=== PATIENT | female | born 1990 | race Caucasian/White ===

== ENCOUNTER 2021-05-26 14:37 | Emergency (ER) | payer SELFPAY ==
[2021-05-26 17:21] LABS: ACETAMINOPHEN 0 ug/mL (10-30)
--- NOTE | 2021-05-26 17:28 | EDM.PDOCBH ---
ED HPI GENERAL MEDICAL PROBLEM - General Chief Complaint: Drug or Alcohol Abuse Stated Complaint: MEDICAL CLEARENCE Time Seen by Provider: 05/26/21 16:09 Source of Information: Reports: Patient, RN Notes Reviewed History Limitations: Reports: No Limitations - History of Present Illness INITIAL COMMENTS - FREE TEXT/NARRATIVE: Patient is a 30-year-old female presenting to the emergency department for medical clearance to go to the [facility] residential crisis center. She reports a long history of heroin abuse. She uses by injecting. Last use was proximate 48 hours ago. Also reports history of IV methamphetamine use. Last use was 3 days ago. She was evaluated at [facility] today and sent here for medical clearance to go to the [facility] [place] [facility] detox. At this time, she states that she feels anxious, slightly nauseous, and has the "creepy crawly's ". She has not been vomiting. - Related Data Allergies Allergy/AdvReac Type Severity Reaction Status Date / Time shellfish derived Allergy Anaphylactic Verified 05/26/21 15:14 Shock Home Meds: Home Meds . 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: Musculoskeletal History: Reports: Other (See Below) Other Musculoskeletal History: shattered pelvis Psychiatric History: Reports: Addiction - Infectious Disease History Infectious Disease History: Reports: Chicken Pox, Hepatitis C, Novel Coronavirus - Past Surgical History Musculoskeletal Surgical History: Reports: Other (See Below) Other Musculoskeletal Surgeries/Procedures:: pelvic surgery Social & Family History - Tobacco Use Tobacco Use Status *Q: Current Every Day Tobacco User Years of Tobacco use: 10 Packs/Tins Daily: 1 - Recreational Drug Use Recreational Drug Use: Yes Drug Use in Last 12 Months: Yes Recreational Drug Type: Reports: Heroin, Methamphetamine Recreational Drug Use Frequency: Binges Recreational Drug Last Use: t-2 ED ROS GENERAL - Review of Systems Review Of Systems: Comprehensive ROS is negative, except as noted in HPI. ED EXAM, BEHAVIORAL HEALTH - Physical Exam Exam: See Below Exam Limited By: No Limitations General Appearance: Alert, WD/WN, No Apparent Distress Eye Exam: Bilateral Eye: PERRL Respiratory/Chest: No Respiratory Distress, Lungs Clear, Normal Breath Sounds, No Accessory Muscle Use, Chest Non-Tender Cardiovascular: Normal Peripheral Pulses, Regular Rate, Rhythm, No Edema, No Gallop, No JVD, No Murmur, No Rub GI/Abdominal: Normal Bowel Sounds, Soft, Non-Tender, No Organomegaly, No Distention, No Abnormal Bruit, No Mass Neurological: Alert, Normal Mood/Affect, Normal Cognition, Normal Gait, No Motor/Sensory Deficits, Oriented x 3 Psychiatric: Alert, Normal Affect, Normal Cognition, Normal Mood, Oriented Skin Exam: Warm, Dry, Intact, Normal color, No rash, Other (Scattered, healed scars to bilateral upper extremities.) #1 Interpretation EKG Date: 05/26/21 Time: 16:35 Rhythm: NSR Rate (Beats/Min): 81 Ambler: Normal P-Wave: Present QRS: Normal ST-T: Normal QT: Normal COURSE, BEHAVIORAL HEALTH COMP - Course Vital Signs: Last Vital Signs Temp 99.3 F 05/26/21 15:11 Pulse 86 05/26/21 15:11 Resp 18 05/26/21 15:11 BP 116/84 05/26/21 15:11 Pulse Ox 99 05/26/21 15:11 Orders, Labs, Meds: Laboratory Tests 05/26/21 05/26/21 05/26/21 Range/Units 15:30 16:11 16:11 WBC (3.98-10.04) K/mm3 RBC (3.98-5.22) M/mm3 Hgb (11.2-15.7) gm/dl Hct (34.1-44.9) % MCV (79.4-94.8) fl MCH (25.6-32.2) pg MCHC (32.2-35.5) g/dl RDW Std Deviation (36.4-46.3) fL Plt Count (182-369) K/mm3 MPV (9.4-12.3) fl Neutrophils % (Manual) (40-60) % Band Neutrophils % (0-10) % Lymphocytes % (Manual) (20-40) % Atypical Lymphs % % Monocytes % (Manual) (2-10) % Eosinophils % (Manual) (0.7-5.8) % Basophils % (Manual) (0.1-1.2) Platelet Estimate Plt Morphology Comment RBC Morph Comment Sodium (136-145) mEq/L Potassium (3.5-5.1) mEq/L Chloride (98-107) mEq/L Carbon Dioxide (21-32) mEq/L Anion Gap (5-15) BUN (7-18) mg/dL Creatinine (0.55-1.02) mg/dL Est Cr Clr Drug Dosing mL/min Estimated GFR (MDRD) (>60) mL/min BUN/Creatinine Ratio (14-18) Glucose (70-99) mg/dL Calcium (8.5-10.1) mg/dL Total Bilirubin (0.2-1.0) mg/dL AST (15-37) U/L ALT (14-59) U/L Alkaline Phosphatase (46-116) U/L Total Protein (6.4-8.2) g/dl Albumin (3.4-5.0) g/dl Globulin gm/dL Albumin/Globulin Ratio (1-2) TSH 3rd Generation (0.358-3.74) uIU/mL Urine HCG, Qual Negative (NEGATIVE) Salicylates (2.8-20) mg/dL Urine Opiates Screen Negative (ASZQLA=859) Ur Buprenorphine Scrn Presumptive positive (CUTOFF=10) Ur Oxycodone Screen Negative (VAV1RC=324) Urine Methadone Screen Negative (TERABT=074) Ur Propoxyphene Screen Negative (DIGEGD=760) Acetaminophen (10-30) ug/mL Ur Barbiturates Screen Negative (ZEDWAO=737) Ur Tricyclics Screen Negative (OLDESF=995) Ur Phencyclidine Scrn Negative (CUTOFF=25) Ur Amphetamine Screen Presumptive positive H (UHHHUY=594) U Methamphetamines Scrn Presumptive positive H (CDPBEW=769) U Benzodiazepines Scrn Negative (FSEOUL=623) U Cocaine Metab Screen Negative (ILVZOR=897) U Marijuana (THC) Screen Negative (CUTOFF=50) Ethyl Alcohol (0.00) gm% SARS-CoV-2 RNA (TYRELL) Negative (NEGATIVE) 05/26/21 05/26/21 05/26/21 Range/Units 16:48 16:48 16:48 WBC 8.17 (3.98-10.04) K/mm3 RBC 4.51 (3.98-5.22) M/mm3 Hgb 11.8 (11.2-15.7) gm/dl Hct 37.0 (34.1-44.9) % MCV 82.0 (79.4-94.8) fl MCH 26.2 (25.6-32.2) pg MCHC 31.9 L (32.2-35.5) g/dl RDW Std Deviation 46.9 H (36.4-46.3) fL Plt Count 575 H (182-369) K/mm3 MPV 9.1 L (9.4-12.3) fl Neutrophils % (Manual) 60 (40-60) % Band Neutrophils % 0 (0-10) % Lymphocytes % (Manual) 37 (20-40) % Atypical Lymphs % 0 % Monocytes % (Manual) 3 (2-10) % Eosinophils % (Manual) 0 L (0.7-5.8) % Basophils % (Manual) 0 L (0.1-1.2) Platelet Estimate Increased Plt Morphology Comment See note RBC Morph Comment Normal Sodium 140 (136-145) mEq/L Potassium 3.7 (3.5-5.1) mEq/L Chloride 104 (98-107) mEq/L Carbon Dioxide 28 (21-32) mEq/L Anion Gap 11.7 (5-15) BUN 8 (7-18) mg/dL Creatinine 0.6 (0.55-1.02) mg/dL Est Cr Clr Drug Dosing 116.74 mL/min Estimated GFR (MDRD) > 60 (>60) mL/min BUN/Creatinine Ratio 13.3 L (14-18) Glucose 88 (70-99) mg/dL Calcium 8.7 (8.5-10.1) mg/dL Total Bilirubin 0.3 (0.2-1.0) mg/dL AST 19 (15-37) U/L ALT 31 (14-59) U/L Alkaline Phosphatase 82 (46-116) U/L Total Protein 8.0 (6.4-8.2) g/dl Albumin 3.1 L (3.4-5.0) g/dl Globulin 4.9 gm/dL Albumin/Globulin Ratio 0.6 L (1-2) TSH 3rd Generation 0.387 (0.358-3.74) uIU/mL Urine HCG, Qual (NEGATIVE) Salicylates 1.9 L (2.8-20) mg/dL Urine Opiates Screen (BGSHNW=645) Ur Buprenorphine Scrn (CUTOFF=10) Ur Oxycodone Screen (RJJ5BU=800) Urine Methadone Screen (DYHBWO=354) Ur Propoxyphene Screen (VHVMPX=474) Acetaminophen 0 L (10-30) ug/mL Ur Barbiturates Screen (KXGVVY=602) Ur Tricyclics Screen (FAKLEE=097) Ur Phencyclidine Scrn (CUTOFF=25) Ur Amphetamine Screen (AHUODK=046) U Methamphetamines Scrn (XXUREH=356) U Benzodiazepines Scrn (QXINJH=546) U Cocaine Metab Screen (WQQWIF=749) U Marijuana (THC) Screen (CUTOFF=50) Ethyl Alcohol 0.00 (0.00) gm% SARS-CoV-2 RNA (TYRELL) (NEGATIVE) Medications Discontinued Medications Generic Name Dose Route Start Last Admin Trade Name Nolvia PRN Reason Stop Dose Admin Lorazepam 1 mg 05/26/21 19:50 05/26/21 19:57 Lorazepam 1 Mg Tab PO 05/26/21 19:51 1 mg ONETIME ONE Administration Medical Clearance: 05/26/21 19:40 Hematology is unremarkable. Urine negative. Drug screen shows presumptive positive for buprenorphine, amphetamine, and methamphetamine. Patient reports that she did take a Suboxone today that someone gave her. She is not prescribed for this. She states that she thought [facility] had a Suboxone program, however they do not. I will write for tapering Ativan and scheduled Zofran for the next few days. Discussed return precautions. Disc harge instructions as documented. Departure - Departure Time of Disposition: 19:40 Disposition: Home, Self-Care 01 Condition: Good Clinical Impression: Drug dependence - Discharge Information *PRESCRIPTION DRUG MONITORING PROGRAM REVIEWED*: Yes *COPY OF PRESCRIPTION DRUG MONITORING REPORT IN PATIENT CLAU: No Instructions: Chemical Dependency Referrals: PCP,None [Primary Care Provider] - Forms: ED Department Discharge Additional Instructions: Take Ativan 1 mg by mouth 1 tablet every 8 hours for 2 days followed by 1 tablet every 12 hours for 2 days followed by 1 tablet daily for 2 days. Take take Zofran 4 mg by mouth every 8 hours for 3 days. Follow the treatment recommendation of [facility]. Return to ER as needed. Sepsis Event Note (ED) - Evaluation Sepsis Screening Result: No Definite Risk
[2021-05-26] MEDS ORDERED: LORazepam 1 MG Tab PO ONE (19:50)
== END 2021-05-26 20:08 | disposition home or self-care (01) ==
LOC: JD.ED 14:37
DX: F19.20 Other psychoactive substance dependence, uncomplicated (principal); Z91.013 Allergy to seafood; Z72.0 Tobacco use; Z20.822 Contact with and (suspected) exposure to COVID-19
CPT/HCPCS: 36415; 80053; 80143; 80179; 80306; 80307; 81025; 84443; 85007; 85027; 87635; 93005; 99283; A9270; U0002

== ENCOUNTER 2022-11-10 17:59 | Emergency (ER) | payer SELFPAY ==
[2022-11-10] MEDS ORDERED: Ondansetron 4 MG/2 ML SDV IVPUSH ONE (18:41)
[2022-11-10] MEDS ORDERED: Sodium Chloride 0.9% 10 ML Syringe FLUSH PRN (18:41)
[2022-11-10] MEDS ORDERED: Sodium Chloride 0.9% 1,000 ML IV ONE (18:41)
[2022-11-10] MEDS ORDERED: Sodium Chloride 0.9% 10 ML Syringe FLUSH ONE (18:55)
[2022-11-10] MEDS ORDERED: Iopamidol 612 MG/ML 100 ML Bottle IVPUSH ONE (18:55)
[2022-11-10] MEDS ORDERED: diphenhydrAMINE 50 MG/ML SDV IVPUSH ONE (19:29)
[2022-11-10] MEDS ORDERED: methylPREDNISolone Sodium Succinate 125 MG/2 ML SDV IVPUSH ONE (19:29)
[2022-11-10] MEDS ORDERED: methylPREDNISolone Sodium Succinate 125 MG/2 ML SDV ONE (19:39)
[2022-11-10 19:55] LABS: APPEARANCE,URINE CLEAR (Clear); BILIRUBIN,URINE NEGATIVE (Negative); COLOR,URINE YELLOW (Yellow); GLUCOSE,URINE NEGATIVE (Negative); KETONES,URINE NEGATIVE (Negative); LEUKOCYTE ESTERASE,URINE 1+ (Negative); NITRITE,URINE NEGATIVE (Negative); OCCULT BLOOD,URINE NEGATIVE (Negative); PROTEIN,URINE NEGATIVE (Negative); UROBILINOGEN,URINE 0.2 (0.2-1.0)
[2022-11-10] MEDS ORDERED: cefTRIAXone 1 GM in Sodium Chloride 0.9% 100 ML IV ONE (20:11)
[2022-11-10 20:16] LABS: BASOPHILS ABSOLUTE AUTO 0.05 K/mm3 (0.01-0.08); BASOPHILS PERCENT AUTO 0.4 % (0.1-1.2); EOSINOPHILS ABSOLUTE AUTO 0.09 K/mm3 (0.04-0.36); EOSINOPHILS PERCENT AUTO 0.8 (0.7-5.8); HEMATOCRIT 38.9 % (34.1-44.9); HEMOGLOBIN 12.6 gm/dl (11.2-15.7); IMMATURE GRAN ABSOLUTE AUTO 0.01 K/mm3 (0.00-0.10); IMMATURE GRAN PERCENT AUTO 0.1 % (<=1.0); LYMPHOCYTES ABSOLUTE AUTO 3.37 K/mm3 (1.18-3.74); LYMPHOCYTES PERCENT AUTO 28.2 % (19.3-51.7); MEAN CORPUSCULAR HEMOGLOBIN 27.3 pg (25.6-32.2); MEAN CORPUSCULAR HGB CONC 32.4 g/dl (32.2-35.5); MEAN CORPUSCULAR VOLUME 84.2 fl (79.4-94.8); MEAN PLATELET VOLUME 9.5 fl (9.4-12.3); MONOCYTES ABSOLUTE AUTO 1.09 K/mm3 (0.24-0.36); MONOCYTES PERCENT AUTO 9.1 % (4.7-12.5); NEUTROPHILS ABSOLUTE AUTO 7.36 K/mm3 (1.56-6.13); NEUTROPHILS PERCENT AUTO 61.4 % (34.0-71.1); RED BLOOD CELL COUNT 4.62 M/mm3 (3.98-5.22); WHITE BLOOD CELL COUNT,WBC 11.97 K/mm3 (3.98-10.04)
[2022-11-10 20:21] LABS: RBC,URINE 0-5 /hpf (0-5); SQUAMOUS EPITHELIAL CELLS,UR 0-5 /hpf (0-5); WBC,URINE 0-5 /hpf (0-5)
[2022-11-10 20:22] LABS: BACTERIA,URINE FEW /hpf (FEW); MUCUS,URINE NOT SEEN /hpf (FEW)
[2022-11-10 20:24] LABS: PLATELET COUNT,PLT 459 K/mm3 (182-369)
[2022-11-10 20:33] LABS: A/G RATIO 0.9 (1-2); ALANINE AMINOTRANSFERASE,ALT 36 U/L (14-59); ALBUMIN 3.2 g/dl (3.4-5.0); ALKALINE PHOSPHATASE 60 U/L (46-116); ANION GAP 10.3 (5-15); ASPARTATE AMNIOTRANSFERASE,AST 15 U/L (15-37); BILIRUBIN TOTAL 0.1 mg/dL (0.2-1.0); BLOOD UREA NITROGEN,BUN 10 mg/dL (7-18); BUN/CREATININE RATIO 12.5 (14-18); C-REACTIVE PROTEIN <0.2 mg/dL (<1.0); CALCIUM 8.5 mg/dL (8.5-10.1); CARBON DIOXIDE,CO2 26 mEq/L (21-32); CHLORIDE,CL 106 mEq/L (98-107); CREATININE 0.8 mg/dL (0.55-1.02); EST CRCL DRUG DOSING (CG) 86.02 mL/min; ESTIMATED GFR 100 mL/min (>60); GLUCOSE RANDOM 83 mg/dL (70-99); LIPASE 219 U/L (73-393); MAGNESIUM 2.1 mg/dL (1.8-2.4); POTASSIUM,K 3.3 mEq/L (3.5-5.1); PROTEIN TOTAL,TP 6.9 g/dl (6.4-8.2); SODIUM,NA 139 mEq/L (136-145)
== END 2022-11-10 21:19 | disposition home or self-care (01) ==
LOC: JD.ED 17:59
DX: N73.9 Female pelvic inflammatory disease, unspecified (principal); A59.01 Trichomonal vulvovaginitis; B96.89 Other specified bacterial agents as the cause of diseases classified elsewhere; F17.210 Nicotine dependence, cigarettes, uncomplicated; Z86.16 Personal history of COVID-19; Z91.013 Allergy to seafood
CPT/HCPCS: 0352U; 36415; 74177; 80053; 81001; 83690; 83735; 85025; 86140; 96361; 96365; 96375; 99284; J0696; J1200; J2405; J2930; J3490; J7030; Q9967

== ENCOUNTER 2022-12-06 15:41 | Emergency (ER) | payer MEDICAID ==
[2022-12-06] MEDS ORDERED: Polyethylene Glycol 3350 Powder 17 GM Packet PO ONE (16:17)
[2022-12-06] MEDS ORDERED: metroNIDAZOLE 500 MG Tab PO ONE (16:19)
[2022-12-06] MEDS ORDERED: Doxycycline Monohydrate 100 MG Cap PO ONE (16:19)
[2022-12-06] MEDS ORDERED: Ondansetron 4 MG Tab.DIS PO ONE (16:45)
== END 2022-12-06 16:56 | disposition home or self-care (01) ==
LOC: JD.ED 15:41
DX: T18.198A Other foreign object in esophagus causing other injury, initial encounter (principal); K59.09 Other constipation; Z91.013 Allergy to seafood; Z86.16 Personal history of COVID-19; Z87.19 Personal history of other diseases of the digestive system
CPT/HCPCS: 74018; 99284; A9270